=== PATIENT | female | born 2000 | race Caucasian/White ===

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

== ENCOUNTER → 2020-03-18 | Outpatient (CLI) | payer OTHER ==
[~2020-03-18] MED LIST changes: +FLUO10 PO
[2020-03-20 14:11] LABS: CHLAMYDIA BY NAA Negative (Negative); GONOCOCCUS BY NAA Negative (Negative); TRICH VAG BY NAA Negative (Negative)
== END ==
LOC: LAB SHORT 13:58 → LAB UCHC 13:58
PROVIDERS: Registered Nurse Community Health
DX: N89.8 Other specified noninflammatory disorders of vagina (principal); Z20.2 Contact with and (suspected) exposure to infections with a predominantly sexual mode of transmission
CPT/HCPCS: 87070; 87147; 87205; 87491; 87591; 87661

== ENCOUNTER 2020-07-21 10:15 | Emergency (ER) | payer OTHER ==
[~2020-07-21] VITALS: Ht 162.6 cm; Wt 54.4 kg
[2020-07-21] MEDS ORDERED: HYDHCL25 PO (12:14)
[2020-07-21] MEDS ORDERED: MIRTAZAPINE7.5 MG PO (12:14)
[2020-07-21] MEDS ORDERED: PRAZ1 PO (12:15)
[2020-07-21] MEDS ORDERED: Naltrexone HCl50 MG PO (12:15)
[2020-07-21] MEDS ORDERED: Norco 5-325 Ta1 EACH PO (13:44)
== END 2020-07-21 13:50 | disposition home or self-care (01) ==
LOC: ER 10:15
DX: S01.21XA Laceration without foreign body of nose, initial encounter (principal); S01.511A Laceration without foreign body of lip, initial encounter; S01.81XA Laceration without foreign body of other part of head, initial encounter; Z87.442 Personal history of urinary calculi; Z79.899 Other long term (current) drug therapy; Y04.2XXA Assault by strike against or bumped into by another person, initial encounter
CPT/HCPCS: 12013; 70486; 99284-25; A9270-GY

== ENCOUNTER 2020-07-24 18:43 | Emergency (ER) | payer OTHER ==
[~2020-07-24] VITALS: Ht 165.1 cm; Wt 58.1 kg
[~2020-07-24 18:43] MED LIST changes: +HYDHCL25 PO; +MIRTAZAPINE7.5 MG PO; +Naltrexone HCl50 MG PO; +Norco 5-325 Ta1 EACH PO; +PRAZ1 PO
[2020-07-24] MEDS ORDERED: Norco 5-325 Ta1 EACH PO (20:55)
[2020-07-24] MEDS ORDERED: Mupirocin22 GM TOP (20:55)
== END 2020-07-24 21:08 | disposition home or self-care (01) ==
LOC: ER 18:43
DX: L01.00 Impetigo, unspecified (principal); S01.511D Laceration without foreign body of lip, subsequent encounter; S01.21XD Laceration without foreign body of nose, subsequent encounter; R68.84 Jaw pain; Z79.899 Other long term (current) drug therapy; Z87.442 Personal history of urinary calculi; X58.XXXD Exposure to other specified factors, subsequent encounter
CPT/HCPCS: 99282

== ENCOUNTER → 2022-12-28 | Outpatient (CLI) | payer OTHER ==
[~2022-12-28] MED LIST changes: +Mupirocin22 GM TOP
== END | disposition home or self-care (01) ==
LOC: LAB SHORT 08:00 → PLD 08:00
DX: D22.71 Melanocytic nevi of right lower limb, including hip (principal)
CPT/HCPCS: 88305

== ENCOUNTER → 2023-01-28 | Outpatient (CLI) | payer OTHER ==
[2023-02-01 17:10] LABS: CHLAMYDIA TRACHOMATIS, NAA Negative (Negative); HPV 16 Negative (Negative); HPV 18 Negative (Negative); HPV OTHER HR TYPES Negative (Negative)
== END ==
LOC: LAB SHORT 16:47 → LAB 16:47
PROVIDERS: Nurse Practitioner Family
DX: Z01.419 Encounter for gynecological examination (general) (routine) without abnormal findings (principal); N89.8 Other specified noninflammatory disorders of vagina
CPT/HCPCS: 87491; 87591; 87624; G0145

== ENCOUNTER 2023-04-24 18:39 | Observation (INO) | payer OTHER ==
[~2023-04-24] VITALS: Ht 165.1 cm; Wt 56.7 kg
[2023-04-24 19:36] VITALS: BP 125/94
[2023-04-24 19:43] LABS: BASOPHILS ABSOLUTE AUTO 0.05 K/mm3 (0.00-0.23); BASOPHILS PERCENT AUTO 0 % (0-2); EOSINOPHILS PERCENT AUTO 0 % (0-6); Hematocrit 37.5 % (33.0-51.0); Hemoglobin 13.2 g/dL (11.5-16.0); IMMATURE GRAN ABSOLUTE AUTO 0.04 K/mm3 (0.00-0.10); IMMATURE GRAN PERCENT AUTO 0 % (0-1); LYMPHOCYTES ABSOLUTE AUTO 1.28 K/mm3 (0.84-5.20); LYMPHOCYTES PERCENT AUTO 11 % (21-46); MONOCYTES ABSOLUTE AUTO 0.77 K/mm3 (0.16-1.47); MONOCYTES PERCENT AUTO 7 % (4-13); Mean Corpuscular HGB Conc 35.2 g/dL (31.5-36.5); Mean Corpuscular Volume 91 fL (80-100); Mean Platelet Volume 9.8 fL (9.1-12.4); NEUTROPHILS ABSOLUTE AUTO 9.35 K/mm3 (1.96-9.15); NEUTROPHILS PERCENT AUTO 82 % (41-73); Platelet Count 266 K/mm3 (150-400); RDW Coefficient Variation 11.6 % (11.7-14.2); RDW Standard Deviation 38.4 fL (35.1-46.3); Red Blood Cell Count 4.13 M/mm3 (3.80-5.20); White Blood Cell Count 11.49 K/mm3 (4.00-11.30)
[2023-04-24 20:02] LABS: Ethanol (Alcohol), Blood, Med 135 mg/dL; Salicylate <1.7 mg/dL (2.8-20.0)
[2023-04-24 20:06] LABS: Acetaminophen, Random <2.0 ug/mL (10.0-30.0); Alanine Aminotransfer (ALT/SGP 29 U/L (12-78); Albumin, Blood 4.2 g/dL (3.4-5.0); Albumin/Globulin Ratio 1.2 (0.8-1.8); Alk Phos 73 U/L (50-136); Anion Gap 9 mmol/L (6-16); Aspartate Aminotrans (AST/SGOT 28 U/L (12-37); Bilirubin, Total 0.2 mg/dL (0.1-1.0); Blood Urea Nitrogen 7 mg/dL (8-24); Bun/Creatinine Ratio 8.4 (12.0-20.0); CO2, Blood 20 mmol/L (21-32); Calcium, Blood 8.6 mg/dL (8.5-10.1); Chloride, Blood 109 mmol/L (98-108); Creatinine, Blood 0.84 mg/dL (0.40-1.00); Globulin, Blood 3.4 g/dL (2.2-4.0); Glomerular Filtration Rate 101 (60-); Glucose, Blood 86 mg/dL (70-99); Potassium, Blood 3.7 mmol/L (3.5-5.5); Sodium, Blood 138 mmol/L (136-145); Total Protein, Blood 7.6 g/dL (6.4-8.2)
[2023-04-24] MEDS ORDERED: BUSP5 PO (21:29)
[2023-04-24] MEDS ORDERED: BUPR75 PO (21:30)
[2023-04-24 21:39] LABS: Source, Urine Clean Catch
[2023-04-24 21:55] LABS: Appearance, Urine Hazy (Clear); Bacteria Many /hpf; Bilirubin, Urine Neg (Neg); Blood, Urine 1+ (Neg); Color, Urine Yellow (P-Yellow); Glucose Qualitative, Urine Neg (Neg); Ketones, Urine 2+ (Neg); Leukocyte Esterase, Urine 1+ (Neg); Nitrite, Urine Neg (Neg); Protein, Urine 1+ (Neg); Red Blood Cells, Urine 0-2 /hpf (0-2); Specific Gravity, Urine 1.025 (1.003-1.022); Squamous Epithelial Cells Mod /hpf (Few); Urobilinogen, Urine NORM (Normal); White Blood Cells, Urine 0-2 /hpf (0-5)
[2023-04-24 22:00] LABS: U Amphetamine Screen Not Detected; U Barbituate Screen Not Detected; U Benzodiazapine Screen Not Detected; U Buprenorphine Screen Not Detected; U Cannabinoids Screen Not Detected; U Cocaine Screen Not Detected; U Methadone Screen Not Detected; U Methamphetamine Screen Not Detected; U Opiates Screen Not Detected; U Oxycodone Screen Not Detected; U Phencyclidine Screen Not Detected; U Propoxyphene Screen Not Detected
[2023-04-24 22:22] LABS: Influenza A, PCR NEGATIVE (NEGATIVE); Influenza B, PCR NEGATIVE (NEGATIVE); Resp Syncytial Virus, PCR NEGATIVE (NEGATIVE); SARS-Cov-2 (COVID-19) PCR, MMC NEGATIVE (NEGATIVE)
== END 2023-04-25 06:13 | disposition home or self-care (01) ==
LOC: ER 18:39 → EOR 18:40
PROVIDERS: ADMIT Emergency Medicine
DX: T43.292A Poisoning by other antidepressants, intentional self-harm, initial encounter (principal); R45.851 Suicidal ideations; F32.A Depression, unspecified
CPT/HCPCS: 0241U; 80053; 81001; 81025; 85025; 87077; 87086; 87186; 93005; 93010; 99285-25; A9270; G0378; G0480